=== PATIENT | female | born 1995 | race African-American/Black ===

== ENCOUNTER 2020-08-18 09:38 | Outpatient (CLI) | payer OTHER ==
[2020-08-18] MEDS ORDERED: [UNRECOGNIZED DRUG - OTHER] PO (10:16)
[2020-08-18] MEDS ORDERED: [UNRECOGNIZED DRUG - REMARK] PO (10:16)
[2020-08-18] MEDS ORDERED: GARLIC EXTRACT PO (10:16)
[2020-08-18] MEDS ORDERED: [UNRECOGNIZED DRUG - OTHER] PO (10:16)
[2020-08-18] MEDS ORDERED: CHRM1TAB PO (10:16)
[2020-08-18] MEDS ORDERED: [UNRECOGNIZED DRUG - REMARK] PO (10:16)
[2020-08-18 10:32] LABS: BASOPHILS % (AUTO) 1 % (0-1); EOSINOPHILS % (AUTO) 1 % (1-7); LYMPHOCYTES % (AUTO) 50 % (22-44); MEAN CORPUSCULAR HEMOGLOBIN 24.7 pg (27.0-34.8); MEAN CORPUSCULAR HGB CONC 33.1 g/dL (32.4-35.8); MEAN PLATELET VOLUME 8.5 fL (7.4-10.4); MONOCYTES % (AUTO) 8 % (2-9); NEUTROPHILS % (AUTO) 40 % (42-75); PLATELET COUNT 375 x10^3/uL (130-400); RED BLOOD COUNT 5.17 x10^6/uL (3.82-5.3); RED CELL DISTRIBUTION WIDTH 16.4 % (9.6-15.2)
[2020-08-18 10:35] LABS: MICROSCOPIC INDICATED
[2020-08-18 10:41] LABS: ALANINE AMINOTRANSFERASE 24 U/L (12-78); ALBUMIN 4.3 g/dL (3.4-5.0); ANION GAP 7 mmol/L (5-15); CALCIUM 9.1 mg/dL (8.5-10.1); CHLORIDE 109 mmol/L (98-107); CREATININE 0.98 mg/dL (0.55-1.02)
[2020-08-18 10:46] LABS: ALKALINE PHOSPHATASE 56 U/L (45-117); BILIRUBIN,TOTAL 1.1 mg/dL (0.2-1.0)
[2020-08-18 10:55] LABS: MD SCAN
== END 2020-08-18 23:59 | disposition home or self-care (01) ==
LOC: STAR 09:38
PROVIDERS: ATTEND Obstetrics & Gynecology Gynecology
DX: Z01.812 Encounter for preprocedural laboratory examination (principal); Z20.822 Contact with and (suspected) exposure to COVID-19; R10.2 Pelvic and perineal pain; N80.9 Endometriosis, unspecified
CPT/HCPCS: 80053; 81001; 84702; 85025; 87635

== ENCOUNTER 2020-08-24 12:05 | Day surgery (SDC) | payer OTHER ==
[~2020-08-24] VITALS: Ht 165.1 cm; Wt 63.6 kg
[~2020-08-24 12:05] MED LIST: ACETAMINOPHEN 325 MG TABLET PO PRN; CHRM1TAB PO; EPHEDRINE 50 MG/ML, 1ML IVPush PRN; GARLIC EXTRACT PO; HYDROmorphone 1 MG/ML, 1ML INJ IVPush PRN; LABETALOL 5MG/ML, 20ML IV PRN; LORazepam 2 MG/ML, 1ML IVPush PRN; MEPERIDINE/PF 25MG/0.5ML IVPush PRN; METHOCARBAMOL 1,000 MG in DEXTROSE 5% 100 ML IV PRN; ONDANSETRON 2MG/ML, 2ML IVPush PRN; OXYcodone 5 MG/5 ML ORAL.SOL UDC PO PRN; PROMETHAZINE 25 MG/ML, 1ML IVPush PRN; [UNRECOGNIZED DRUG - OTHER] PO; [UNRECOGNIZED DRUG - OTHER] PO; [UNRECOGNIZED DRUG - REMARK] PO; [UNRECOGNIZED DRUG - REMARK] PO; hydrALAzine 20 MG/ML, 1ML IV PRN
[2020-08-24] MEDS ORDERED: FENTANYL PF 250 MCG/5ML ONE (12:22)
[2020-08-24] MEDS ORDERED: MIDAZOLAM 1 MG/ML, 2ML ONE (12:22)
[2020-08-24 12:51] LABS: HCG UR SG 1.026 (1.003-1.030)
[2020-08-24] MEDS ORDERED: BUPIVACAINE/PF 0.25% ONE (12:51)
[2020-08-24] MEDS ORDERED: INDIGO CARMINE 0.8%, 5ML ONE (12:51)
[2020-08-24] MEDS ORDERED: CHLORHEXIDINE 15 ML UDC MM ONE (13:00)
[2020-08-24] MEDS ORDERED: SCOPOLAMINE 1MG PATCH TD ONE (13:00)
[2020-08-24] MEDS ORDERED: ACETAMINOPHEN 500 MG TABLET PO ONE (13:00)
[2020-08-24] MEDS ORDERED: SCOPOLAMINE 1MG PATCH TD SCH (13:00)
[2020-08-24] MEDS ORDERED: ACETAMINOPHEN 500 MG TABLET ONE (13:00)
[2020-08-24] MEDS ORDERED: SODIUM CHLORIDE 0.9% 1,000 ML IV SCH (13:00)
[2020-08-24] MEDS ORDERED: LACTATED RINGERS 1,000 ML IV SCH (13:00)
[2020-08-24] MEDS ORDERED: PROPOFOL 10 MG/ML, 20ML ONE (13:15)
[2020-08-24] MEDS ORDERED: GLYCOPYRROLATE 0.2MG/1ML, 5ML ONE (13:15)
[2020-08-24] MEDS ORDERED: ROCURONIUM 10 MG/ML,10ML ONE (13:15)
[2020-08-24] MEDS ORDERED: ONDANSETRON 2MG/ML, 2ML ONE (13:15)
[2020-08-24] MEDS ORDERED: SUCCINYLCHOLINE 20 MG/ML, 10ML ONE (13:15)
[2020-08-24] MEDS ORDERED: CEFAZOLIN 1,000 MG ONE (13:15)
[2020-08-24] MEDS ORDERED: DEXAMETHASONE 4 MG/ML, 1ML ONE (13:15)
[2020-08-24] MEDS ORDERED: KETOROLAC 30 MG/1 ML ONE (13:15)
[2020-08-24] MEDS ORDERED: NEOSTIGMINE 1 MG/ML, 10ML ONE (13:15)
[2020-08-24] MEDS ORDERED: METOCLOPRAMIDE 5 MG/ML, 2ML ONE (13:15)
[2020-08-24] MEDS ORDERED: MEPERIDINE/PF 25MG/ML,1ML ONE (14:49)
[2020-08-24] MEDS ORDERED: ACETAMINOPHEN 650 MG/20.3 ML UDC ONE (15:11)
[2020-08-24] MEDS ORDERED: OXYcodone 5 MG/5 ML ORAL.SOL UDC ONE (15:11)
[2020-08-24] MEDS ORDERED: PROMETHAZINE 25 MG/ML, 1ML ONE (15:17)
[2020-08-24] MEDS: FENTANYL PF 100 MCG/2ML IV PRN ×2 (15:20→15:40)
[2020-08-24] MEDS ORDERED: FENTANYL PF 100 MCG/2ML ONE (15:21)
== END 2020-08-24 17:00 | disposition home or self-care (01) ==
LOC: OUT 12:05
PROVIDERS: ATTEND Obstetrics & Gynecology Gynecology
DX: N80.3 Endometriosis of pelvic peritoneum (principal); N83.8 Other noninflammatory disorders of ovary, fallopian tube and broad ligament; Z79.899 Other long term (current) drug therapy
CPT/HCPCS: 36415; 58350; 58662; 81025; 86850; 86900; 88305; J0330; J0690; J1100; J1885; J2175; J2250; J2405; J2550; J2704; J2710; J2765; J3010; J7120; S2900